=== PATIENT | male | born 1955 | race Caucasian/White ===

== ENCOUNTER 2024-02-29 14:09 | Emergency (ER) | payer OTHER ==
--- OUTSIDE RECORDS SUMMARY | 2024-02-29 14:14 | XMS REPORT | Continuity of Care Document ---
Author Name Unknown Address [address] [facility] [address] [place] [address] [facility] thconnect Address [address] [facility] 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 Role Phone Ralf Maciel Attending Clinician Unavailable Luciano Clay Attending Clinician Unavailable Shweta Andrews Attending Clinician Unavailable Denae Plata Attending Clinician Unavailable Payers Payer Name Policy Type Policy Number Effective Date Expirati on Date Source Problems Condition Name Condition Details Condition Category Status Onset Date Resolution Date Last Treatment Date Treating Clinician Comments Source [id number] Lumbago with sciatica, right side Problem [facility] [id number] Other chronic pain Problem [facility] [id number] Lumbago with sciatica, left side Problem [facility] [id number] Acquired hypothyroi dism Problem [facility] [id number] Benign prostatic hyperplasi a, unspecifie d whether lower urinary tract symptoms present Problem [facility] [id number] Neuropathy Problem Com [facility] [id number] Essential hypertensi on Problem [facility] Social History Social Habit Start Date Stop Date Quantity Comments Source History of Tobacco Use [facility] Sex Assigned At [facility] Smoking Status Start Date Stop Date Source Never Smoker [facility] Former Smoker 2023-04-18 00:00:00 2023-04-18 00:00:00 [facility] Medications Ordered Medication Name Filled Medication Name Start Date Stop Date Current Medication? Ordering Clinician Indication Dosage Frequency Signature (SIG) Comments Components Source Nitrofurant oin Monohyd Macro 100 MG Nitrofurant oin Monohyd Macro 100 MG 2023-03 00:00: 00 No 1{capsu le_with _food} BID Nitrofuran toin Monohyd Macro 100 MG hydroCHLORO thiazide 25 MG hydroCHLORO thiazide 25 MG 2023-03 0- 00:00: 00 No 1{table t_in_th e_morni ng} QD hydroCHLOR Othiazide 25 MG Ciclopirox 8 % Ciclopirox 8 % 2023-03 0- 00:00: 00 No 1{appli cation} QD Ciclopirox 8 % Gabapentin 400 MG Gabapentin 400 MG 11-27 00:00: 00 No 1{capsu le} QD Gabapentin 400 MG Furosemide 20 MG Furosemide 20 MG 07-05 00:00: 00 No 1{table t} BID Furosemide 20 MG Omeprazole 20 MG Omeprazole 20 MG No QD Omeprazole 20 MG Turmeric 400 MG Turmeric 400 MG No Turmeric 400 MG Meloxicam 7.5 MG Meloxicam 7.5 MG No 1{table t} BID Meloxicam 7.5 MG Tamsulosin HCl 0.4 MG Tamsulosin HCl 0.4 MG No 1{capsu le} QD Tamsulosin HCl 0.4 MG Calcium 600 MG Calcium 600 MG No 1{table t_with_ meals} BID Calcium 600 MG Lisinopril 40 MG Lisinopril 40 MG No 1{table t} QD Lisinopril 40 MG Sildenafil Citrate 100 MG Sildenafil Citrate 100 MG No 1{table t} QD Sildenafil Citrate 100 MG Vitamin C 1000 MG Vitamin C 1000 MG No 1{table t} QD Vitamin C 1000 MG Levothyroxi ne Sodium 100 MCG Levothyroxi ne Sodium 100 MCG No QD Levothyrox ine Sodium 100 MCG Apple Cider Vinegar 300 MG Apple Cider Vinegar 300 MG No Apple Cider Vinegar 300 MG Aspirin 81 MG Aspirin 81 MG No 1{table t} QD Aspirin 81 MG Echinacea 400 MG Echinacea 400 MG No Echinacea 400 MG Potassium Potassium No Potassium Gabapentin 600 MG Gabapentin 600 MG No 1{capsu le} BID Gabapentin 600 MG Immunizations Ordered Immunization Name Filled Immunization Name Date Status Comments Source Prevnar 20 (PCV20) Prevnar 20 (PCV20) Unknown Completed [facility] Vital Signs Vital Name Observation Time Observation Value Comments Luz Maria becerril height 2024-02-22 10:00:00 72 [in_i] Commo n [facility] weight 2024-02-22 10:00:00 206.6 [lb_av] Co [facility] temperature 2024-02-22 10:00:00 98 [degF] Comm on [facility] bmi 2024-02-22 10:00:00 28.02 kg/m2 Comm on [facility] oximetry 2024-02-22 10:00:00 98 % Commo n [facility] respiratory rate 2024-02-22 10:00:00 16 /min [facility] blood pressure systolic 2024-02-22 10:00:00 130 mm[Hg] [facility] blood pressure diastolic 2024-02-22 10:00:00 60 mm[Hg] [facility] height 2024-01-03 11:20:00 72 [in_i] Commo n [facility] weight 2024-01-03 11:20:00 211.4 [lb_av] Co mmon [facility] temperature 2024-01-03 11:20:00 99.2 [degF] Com mon [facility] bmi 2024-01-03 11:20:00 28.67 kg/m2 Comm on [facility] oximetry 2024-01-03 11:20:00 97 % Commo n [facility] blood pressure systolic 2024-01-03 11:20:00 146 mm[Hg] [facility] blood pressure diastolic 2024-01-03 11:20:00 80 mm[Hg] [facility] height 2024-01-03 11:20:00 72 [in_i] Commo n [facility] weight 2024-01-03 11:20:00 211.4 [lb_av] Co mmon [facility] temperature 2024-01-03 11:20:00 99.2 [degF] Com [facility] bmi 2024-01-03 11:20:00 28.67 kg/m2 Comm on [facility] oximetry 2024-01-03 11:20:00 97 % Commo n [facility] blood pressure systolic 2024-01-03 11:20:00 146 mm[Hg] [facility] blood pressure diastolic 2024-01-03 11:20:00 80 mm[Hg] Common [facility] height 2023-12-26 09:40:00 72 [in_i] Commo n [facility] weight 2023-12-26 09:40:00 211.2 [lb_av] Co mmon [facility] temperature 2023-12-26 09:40:00 99.0 [degF] Com [facility] bmi 2023-12-26 09:40:00 28.64 kg/m2 Comm on [facility] oximetry 2023-12-26 09:40:00 96 % Commo n [facility] respiratory rate 2023-12-26 09:40:00 16 /min Common [facility] blood pressure systolic 2023-12-26 09:40:00 142 mm[Hg] [facility] blood pressure diastolic 2023-12-26 09:40:00 74 mm[Hg] Common [facility] height 2023-12-12 11:20:00 72 [in_i] Commo n [facility] weight 2023-12-12 11:20:00 218.4 [lb_av] Co mmon [facility] temperature 2023-12-12 11:20:00 99.8 [degF] Com mon [facility] bmi 2023-12-12 11:20:00 29.62 kg/m2 Comm on [facility] oximetry 2023-12-12 11:20:00 97 % Commo n [facility] respiratory rate 2023-12-12 11:20:00 17 /min Common [facility] blood pressure systolic 2023-12-12 11:20:00 162 mm[Hg] [facility] blood pressure diastolic 2023-12-12 11:20:00 84 mm[Hg] Common [facility] height 2023-11-28 10:40:00 72 [in_i] Commo n [facility] weight 2023-11-28 10:40:00 213.4 [facility]lb_av[facility] 2023-11-28 10:40:00 98.2 [degF] Com [facility] bmi 2023-11-28 10:40:00 28.94 kg/m2 Comm on [facility] oximetry 2023-11-28 10:40:00 93 % Commo n [facility] blood pressure systolic 2023-11-28 10:40:00 142 mm[Hg] Common [facility] blood pressure diastolic 2023-11-28 10:40:00 70 mm[Hg] [facility] height 2023-07-06 08:20:00 72 [in_i] Commo n [facility] weight 2023-07-06 08:20:00 212.8 [lb_av] Co mmon [facility] temperature 2023-07-06 08:20:00 98.8 [degF] Com [facility] bmi 2023-07-06 08:20:00 28.86 kg/m2 Comm on [facility] oximetry 2023-07-06 08:20:00 95 % Commo n [facility] respiratory rate 2023-07-06 08:20:00 16 /min Common [facility] blood pressure systolic 2023-07-06 08:20:00 138 mm[Hg] [facility] blood pressure diastolic 2023-07-06 08:20:00 68 mm[Hg] [facility] height 2023-05-23 11:00:00 72 [in_i] Commo n [facility] weight 2023-05-23 11:00:00 207.4 [lb_av] Co on [facility] temperature 2023-05-23 11:00:00 99.1 [degF] Com [facility] bmi 2023-05-23 11:00:00 28.13 kg/m2 Comm on [facility] oximetry 2023-05-23 11:00:00 96 % Commo n [facility] respiratory rate 2023-05-23 11:00:00 16 /min [facility] blood pressure systolic 2023-05-23 11:00:00 139 mm[Hg] [facility] blood pressure diastolic 2023-05-23 11:00:00 75 mm[Hg] [facility] blood pressure systolic 2023-05-23 10:40:00 139 mm[Hg] [facility] blood pressure diastolic 2023-05-23 10:40:00 75 mm[Hg] [facility] height 2023-05-23 10:40:00 72 [in_i] Commo n [facility] weight 2023-05-23 10:40:00 207.4 [lb_av] Co on [facility] temperature 2023-05-23 10:40:00 99.1 [degF] Com [facility] bmi 2023-05-23 10:40:00 28.13 kg/m2 Comm on [facility] oximetry 2023-05-23 10:40:00 96 % Commo n [facility] respiratory rate 2023-05-23 10:40:00 16 /min [facility] height 2023-04-18 10:00:00 72 [in_i] Commo n [facility] weight 2023-04-18 10:00:00 207.00 [lb_av] C ommon [facility] temperature 2023-04-18 10:00:00 98.6 [degF] Com mon [facility] bmi 2023-04-18 10:00:00 28.07 kg/m2 Comm on [facility] oximetry 2023-04-18 10:00:00 99 % Commo n [facility] respiratory rate 2023-04-18 10:00:00 17 /min [facility] blood pressure systolic 2023-04-18 10:00:00 128 mm[Hg] [facility] blood pressure diastolic 2023-04-18 10:00:00 62 mm[Hg] [facility] Encounters Start Date/Time End Date/Time Encounter Type Admission Type Attending [facility] Facility Care Department Encounter ID Source 2023-04-18 09:21:01 Outpatient Ralf Maciel STLMLC STLMLC [id number] [facility] 2024-02-22 00:00:00 2024-02-22 00:00:00 OFFICE VISIT ESTAB PT LEVEL 4 STLMLC STLMLC [id number] [facility] 2024-02-18 00:00:00 2024-02-18 00:00:00 (TEL) STLMLC STLMLC [id number] [facility] 2024-01-07 00:00:00 2024-01-07 00:00:00 (TEL) STLMLC STLMLC [id number] [facility] 2024-01-03 00:00:00 2024-01-03 00:00:00 OFFICE VISIT ESTAB PT LEVEL 4 STLMLC STLMLC [id number] [facility] 2024-01-02 00:00:00 2024-01-02 00:00:00 (TEL) STLMLC STLMLC [id number] [facility] 2023-12-26 00:00:00 2023-12-26 00:00:00 OFFICE VISIT ESTAB PT LEVEL 3 STLMLC STLMLC [id number] [facility] 2023-12-25 00:00:00 2023-12-25 00:00:00 (TEL) STLMLC STLMLC [id number] [facility] 2023-12-18 00:00:00 2023-12-18 00:00:00 (TEL) STLMLC STLMLC [id number] [facility] 2023-12-14 00:00:00 2023-12-14 00:00:00 (TEL) STLMLC STLMLC [id number] [facility] 2023-12-12 00:00:00 2023-12-12 00:00:00 (ESTPT) Establishe d Patient STLMLC STLMLC [id number] [facility] 2023-12-12 00:00:00 2023-12-12 00:00:00 (TEL) STLMLC STLMLC [id number] [facility] 2023-12-05 00:00:00 2023-12-05 00:00:00 (TEL) STLMLC STLMLC [id number] [facility] 2023-11-28 00:00:00 2023-11-28 00:00:00 OFFICE VISIT ESTAB PT LEVEL 4 STLMLC STLMLC [id number] [facility] 2023-11-23 16:04:00 2023-11-23 16:04:00 Outpatient Luciano Clay CHW [id number] [facility] 2023-11-12 00:00:00 2023-11-12 00:00:00 (TEL) STLMLC STLMLC [id number] [facility] 2023-11-09 00:00:00 2023-11-09 00:00:00 (TEL) STLMLC STLMLC [id number] [facility] 2023-10-24 00:00:00 2023-10-24 00:00:00 (TEL) STLMLC STLMLC [id number] [facility] 2023-08-17 00:00:00 2023-08-17 00:00:00 OFFICE VISIT ESTAB PT LEVEL 3 STLMLC STLMLC [id number] [facility] 2023-07-10 00:00:00 2023-07-10 00:00:00 (TEL) STLMLC STLMLC [id number] [facility] 2023-07-06 00:00:00 2023-07-06 00:00:00 OFFICE VISIT ESTAB PT LEVEL 4 STLMLC STLMLC [id number] [facility] 2023-07-05 00:00:00 2023-07-05 00:00:00 (TEL) STLMLC STLMLC [id number] [facility] 2023-05-23 00:00:00 2023-05-23 00:00:00 SUB ANNUAL [facility] VISIT STLMLC STLMLC [id number] [facility] 2023-05-23 00:00:00 2023-05-23 00:00:00 OFFICE VISIT ESTAB PT LEVEL 4 STLMLC STLMLC [id number] [facility] 2023-05-20 00:00:00 2023-05-20 00:00:00 (WEB) STLMLC STLMLC [id number] [facility] 2023-05-14 00:00:00 2023-05-14 00:00:00 (TEL) STLMLC STLMLC [id number] [facility] 2023-04-18 00:00:00 2023-04-18 00:00:00 OFFICE VISIT NEW PT LEVEL 4 STLMLC STLMLC [id number] [facility] 2019-11-27 16:18:00 2019-11-27 16:18:00 Outpatient Shweta Andrews Kevin CHW [id number] [facility] 2019-03-14 09:55:00 2019-03-14 09:55:00 Outpatient Luciano Clay Kevin CHW [id number] [facility] 2019-03-03 12:16:00 2019-03-03 12:16:00 Outpatient Luciano Clay Kevin CHW [id number] [facility] 2018-11-26 10:27:00 2018-11-26 10:27:00 Outpatient Luciano Clay [facility] CHW [id number] [facility] 2018-11-22 12:24:00 2018-11-22 12:24:00 Outpatient Luciano Clay Kevin CHW [id number] [facility] 2018-09-13 14:00:00 2018-09-13 14:00:00 Outpatient Denae Plata W [id number] [facility] 2018-09-11 15:38:00 2018-09-11 15:38:00 Outpatient Denae Plata W [id number] [facility] 2018-09-10 14:16:00 2018-09-10 14:16:00 Outpatient Denae Plata CHW [id number] [facility] 2018-08-14 14:13:00 2018-08-14 14:13:00 Outpatient Denae Plata W [id number] [facility] 2018-07-22 10:22:00 2018-07-22 10:22:00 Outpatient Denae Plata Kevin CHW [id number] [facility] 2018-06-25 16:54:00 2018-06-25 16:54:00 Outpatient Denae Plata W [id number] [facility] 2018-06-20 14:40:00 2018-06-20 14:40:00 Outpatient Konrad-Jessica Whalen CHW [id number] [facility] 2018-06-06 15:00:00 2018-06-06 15:00:00 Outpatient Denae Plata Kevin W [id number] [facility] 2018-06-04 08:13:00 2018-06-04 08:13:00 Outpatient Denae Plata [facility] [id number] [facility] 2018-06-03 10:58:00 2018-06-03 10:58:00 Outpatient Denae Plata Kevin Kevin [id number] [facility] 2018-03-26 09:40:00 2018-03-26 09:40:00 Outpatient Denae Plata Kevin Kevin [id number] [facility] 2018-03-19 10:07:00 2018-03-19 10:07:00 Outpatient Denae Plata Kevin [facility] [id number] [facility] 2018-03-11 08:50:00 2018-03-11 08:50:00 Outpatient Denae Plata Kevin [facility] [id number] [facility] 2018-03-08 08:26:00 2018-03-08 08:26:00 Outpatient Denae Plata Kevin [facility] [id number] [facility] s 2018-03-07 14:35:00 2018-03-07 14:35:00 Outpatient Denae Plata Kevin [facility] [id number] [facility] 2018-01-22 13:00:00 2018-01-22 13:00:00 Outpatient Denae Plata Kevin Kevin [id number] [facility] s 2018-01-15 14:39:00 2018-01-15 14:39:00 Outpatient Denae Plata Kevin [facility] [id number] [facility] 2017-12-13 14:11:00 2017-12-13 14:11:00 Outpatient Denae Plata Kevin [facility] [id number] [facility] 2017-11-28 14:40:00 2017-11-28 14:40:00 Outpatient Denae Plata Kevin [facility] [id number] [facility] 2017-10-30 15:34:00 2017-10-30 15:34:00 [facility] [id number] 2017-10-30 09:20:00 2017-10-30 09:20:00 Outpatient Denae Plata [facility] [id number] [facility] 2017-10-26 15:17:00 2017-10-26 15:17:00 Outpatient Boni Denae W CHW [id number] [facility] Results Test Description Test Time Test Comments Results Result Co mments Source HEMOGLOBIN [id number] 00:00:00* Test Item Value Reference Range Interpretation Comme nts A1C (test code = 4548-4) 6.1 CULTURE, [id number] 00:00:00* Test Item Value Reference Range Interpretation Comme nts CULTURE, URINE (test code = 630-4) SPECIMEN NUMBER: [id number] MICROALBUMIN, RANDOM URINE (W/CREATININE)2023-11-20 00:00:00* Test Item Value Reference Range Interpretation Comme nts TSH W/REFLEX TO FT4 (test code = 3016-3) 2.31 mIU/L See_Comment N [Automated Tinka ge] The system which generated this result transmitted reference range: 0.40-4.50 mIU/L. The reference range was not used to interpret this result as normal/abnormal. CREATININE, RANDOM URINE (test code = 2161-8) 53 mg/dL See_Comment N [Automated Tinka ge] The system which generated this result transmitted reference range: 20-320 mg/dL. The reference range was not used to interpret this result as normal/abnormal. ALBUMIN, URINE (test code = 75364-7) 0.4 mg/dL See Note: mg/dL N ALBUMIN/CREATININE RATIO, RANDOM URINE (test code = 9318-7) 8 mg/g creat See_Comment N [Automated [employer] Powered] The system which generated this result transmitted reference range: <30 mg/g creat. The reference range was not used to interpret this result as normal/abnormal.
[2024-02-29 15:32] LABS: Absolute Basophils 0.1 K/uL (0-0.5); Absolute Eosinophils 0.3 K/uL (0-0.5); Absolute Lymphocytes (CBC) 1.5 K/uL (0.7-4.9); Absolute Monocytes 0.6 K/uL (0.1-1.3); Absolute Neutrophil 4.7 K/uL (1.8-8.0); Basophils % 0.7 % (0-1.3); Eosinophils % 4.2 % (0-4.4); Hematocrit 38.9 % (39.6-49.0); Hemoglobin 13.3 g/dL (13.6-17.9); Lymphocytes % 21.5 % (15.3-44.8); MCHC 34.2 g/dL (32.0-36.0); MCV 90.5 fL (80-100); MPV 9.5 fL (7.6-11.3); Monocytes % 8.3 % (3.3-12.3); Neutrophils % 65.3 % (41.7-73.7); Platelets 232 thou/uL (152-406); Red Cell Distribution Width 12.4 % (12.1-15.2)
[2024-02-29 15:42] LABS: Sqamous Epithelial <5 /HPF (None Seen); Urine Bacteria None Seen /HPF (<20); Urine Culture Reflex Order NOT NEEDED; Urine Microscopic Reflex YN ORDER UMIC; Urine RBC <5 /HPF (None Seen); Urine WBC <5 /HPF (<5); Urine WBC Clump Rare /HPF (None Seen); Urine Yeast (Budding) Trace /HPF (None Seen)
[2024-02-29 15:44] LABS: Specific Gravity 1.009 (1.005-1.030); Urine Bilirubin Negative (Negative); Urine Blood Negative (Negative); Urine Clarity Clear (Clear); Urine Color Light-Yellow (Yellow); Urine Glucose Negative (Negative); Urine Ketones Negative (Negative); Urine Nitrite Negative (Negative); Urine Protein Negative (Negative); Urine Urobilinogen Normal (Normal)
[2024-02-29 15:48] LABS: Albumin 3.9 g/dL (3.4-5.0); Anion Gap 8.6 mEq/L (5.0-15.0); Bilirubin Total 0.5 mg/dL (0.2-1.0); Globulin 3.8 g/dL (2.3-3.5); Potassium 3.6 mEq/L (3.5-5.1); Protein, Total 7.7 g/dL (6.4-8.2)
[2024-02-29 15:54] LABS: PT Prothrombin Time 11.6 SECONDS (9.4-12.5); Protime INR 1.04
[2024-02-29 16:06] LABS: PTT, Activated Partial Thromb 33.4 SECONDS (24.3-36.9)
--- NOTE | 2024-02-29 16:31 | RAD REPORT ---
EXAMINATION: CT Abdomen Pelvis W/Wo Contrast CLINICAL INDICATION: Male, 68 years old. [facility] MAIN left mid/low back pain Bed Name: 13 TECHNIQUE: CT abdomen and pelvis was performed, before and after the administration of IV contrast, a s per department protocol. Axial, sagittal and coronal reconstructions were obtained. One or more of the following dose reduction techniques were used: Automated exposure control, adjustment of the m A and/or kV according to patient size, and/or iterative reconstruction. Unless otherwise specified, incidental findings do not require dedicated imaging follow-up. COMPARISON: 01/02/2024 ultrasound FINDINGS: LOWER CHEST: The visualized lung bases are clear. LIVER: Normal in size and contour. No focal lesion. BILIARY SYSTEM: No suspicious abnormalities. PANCREAS: No mass, ductal dilation, or philip-pancreatic fluid. SPLEEN: Normal size. No focal lesion. ADRENALS: Normal; no mass. KIDNEYS AND URETERS: Normal size and contour. No hydronephrosis or hydroureter. No enhancing mass or filling defect within the renal pelvises. No suspicious filling defects within the ureters. URINARY BLADDER: Mild wall thickening anteriorly and at the dome with some pericystic fat stranding. Moderate prostatomegaly.. No suspicious mass or stone. GASTROINTESTINAL TRACT: No evidence of bowel obstruction, free air, significant free fluid or abscess . Distal colonic diverticulosis. APPENDIX: No inflammatory changes in region of appendix. LYMPH NODES: No lymphadenopathy. REPRODUCTIVE ORGANS: No pathologic process. MUSCULOSKELETAL: Healing anterior right eighth and ninth rib fractures. No other acute or suspicious osseous abnormality. ADDITIONAL FINDINGS: None. IMPRESSION: Mild wall thickening anteriorly and at the dome of the urinary bladder, please correlate clinically f or acute cystitis. Healing anterior right eighth and ninth rib fractures. Distal colonic diverticulosis. Moderate prostatomegaly.
--- NOTE | 2024-02-29 17:12 | EDPHYS ---
Physician Documentation [facility] Name: Evin Rebollar Age: 68 yrs Sex: Male : 1955 Arrival Date: 02/29/2024 Time: 14:09 Bed 13 Private MD: ED Physician Marlon Robles HPI: 02/28 14:55 This 68 yrs old Male presents to ER via Ambulatory with complaints of Urinary Problem. cp 14:55 The patient presents with urinary symptoms, dysuria, discharge. cp 14:55 Patient is a 60-year-old male past medical history significant for hypertension and cp diabetes who reports he was referred to the emergency department for IV antibiotics for positive urine culture that grew MRSA. Patient reports he self caths due to enlarged prostate and that he saw his PCP this past Sunday and provided a urine sample that had a positive culture report for MRSA type bacteria. Patient denies any fevers, chills and/or abdominal pain. Patient does report discharge after urinating. Historical: - Allergies: 14:29 No Known Allergies; db - PMHx: 14:29 Diabetes mellitus; Hypertensive disorder; db - Immunization history:: Adult Immunizations unknown. - Infectious Disease History:: Denies. - Social history:: Smoking status: Patient reports the use of cigarette tobacco products, denies chronic smoking, but will smoke occasionally. ROS: 15:00 Constitutional: Negative for body aches, chills, fever, poor PO intake, cp 15:00 Eyes: Negative for injury, pain, redness, and discharge, cp 15:00 ENT: Negative for drainage from ear(s), ear pain, difficulty swallowing, difficulty handling secretions, 15:00 Abdomen/GI: Negative for abdominal pain, nausea, vomiting, and diarrhea, 15:00 Back: Positive for flank pain, on the left, 15:00 : Positive for penile discharge, 15:00 Neuro: Negative for altered mental status, headache, weakness, 15:00 All other systems are negative, Exam: 15:05 Constitutional: The patient appears in no acute distress, alert, awake, comfortable, cp non-toxic, well developed, well nourished, 15:05 Head/Face: Normocephalic, atraumatic. cp 15:05 Eyes: Periorbital structures: appear normal, Conjunctiva: normal, no exudate, no injection, Sclera: no appreciated abnormality, Lids and lashes: appear normal, bilaterally, 15:05 ENT: External ear(s): are unremarkable, Nose: is normal, Mouth: Lips: moist, Oral mucosa: moist, Posterior pharynx: Airway: no evidence of obstruction, patent, 15:05 Chest/axilla: Inspection: normal, 15:05 Cardiovascular: Rate: normal, Rhythm: regular, Edema: is not appreciated, JVD: is not appreciated, 15:05 Respiratory: the patient does not display signs of respiratory distress, Respirations: normal, no use of accessory muscles, no retractions, labored breathing, is not present, Breath sounds: are clear throughout, no decreased breath sounds, no stridor, no wheezing, 15:05 Abdomen/GI: Inspection: abdomen appears normal, Palpation: abdomen is soft and non-tender, in all quadrants, 15:05 Back: pain, that is mild, of the left low back and left mid back, ROM is normal, 15:05 Neuro: Orientation: to person, place \T\ time. Mentation: is normal, Motor: moves all fours, strength is normal, Gait: is steady, 16:46 ECG was reviewed by the Attending Physician. Vital Signs: 14:27 BP 136 / 68; Pulse 70; Resp 16; Temp 97.7; Pulse Ox 99% ; Weight 95.25 kg; Height 6 ft. db 0 in. ; Pain 0/10; 17:30 BP 134 / 74; Pulse 71; Resp 17; Pulse Ox 99% on R/A; rs5 14:27 Body Mass Index 28.48 (95.25 kg, 182.88 cm) db 14:27 Pain Scale: Adult db MDM: 14:25 Medical Screening Exam initiated cp 15:00 Differential diagnosis: UTI, urinary retention, prostatitis, urethritis, sepsis. 17:10 Data reviewed: vital signs, nurses notes, lab test result(s), radiologic studies, CT cp scan, and as a result, I will discharge patient. 17:11 I considered the following discharge prescriptions or medication management in the emergency department Medications were administered in the Emergency Department. See MAR. 17:11 Independent interpretation of the following test(s) in the Emergency Department EKG: cp See my EKG interpretation above. Care significantly affected by the following chronic conditions: Diabetes, Hypertension. Counseling: I had a detailed discussion with the patient and/or guardian regarding the historical points, exam findings, and any diagnostic results supporting the discharge/admit diagnosis, lab results, radiology results, the need for outpatient follow up, a urologist, to return to the emergency department if symptoms worsen or persist or if there are any questions or concerns that arise at home. ED course: VSS. Discussed results of today's testing and urine results that were negative for wbcs and bacteria. No indication for admission and IV antibiotics at this time. Will discharge to home for continued monitoring. 02/28 14:53 Order name: Urinalysis w/ reflexes; Complete Time: 15:47 02/28 15:47 Interpretation: Normal except: BYST Trace. 02/28 14:53 Order name: Blood Culture Adult (2) 02/28 14:53 Order name: CBC with Diff; Complete Time: 15:47 02/28 15:48 Interpretation: Normal except: RBC 4.30; HGB 13.3; HCT 38.9. 02/28 14:53 Order name: CMP; Complete Time: 15:49 02/28 15:49 Interpretation: Normal except: GLUC 151; BUN 25; GFR 80; GLOB 3.8; A/G 1.0. 02/28 14:53 Order name: Lactate w/ 2H reflex if indic.; Complete Time: 16:07 02/28 16:07 Interpretation: Reviewed. 02/28 14:53 Order name: Protime (+inr); Complete Time: 16:07 02/28 16:07 Interpretation: Reviewed. 02/28 14:53 Order name: Ptt, Activated; Complete Time: 16:07 02/28 16:07 Interpretation: Reviewed. 02/28 15:49 Order name: CT Abd/Pelvis- W/WO Contrast; Complete Time: 16:47 02/28 16:48 Interpretation: Reviewed. 02/28 14:53 Order name: Cath; Complete Time: 17:13 02/28 14:53 Order name: Accucheck; Complete Time: 15:47 02/28 14:53 Order name: Cardiac monitoring; Complete Time: 15:47 02/28 14:53 Order name: IV Saline Lock - Large Bore; Complete Time: 15:23 02/28 14:53 Order name: Labs collected and sent; Complete Time: 15:23 cp 02/28 14:53 Order name: O2 Per Protocol; Complete Time: 15:47 cp 02/28 14:53 Order name: O2 Sat Monitoring; Complete Time: 15:47 cp 02/28 14:53 Order name: Vital Signs; Complete Time: 15:47 cp EC:46 Rate is 66 beats/min. Rhythm is regular. VA interval is normal. QRS interval is cp prolonged at 112 msec. QT interval is normal. T waves are Inverted in lead aVR. Interpreted by me. Reviewed by me. Administered Medications: 17:13 Drug: Trimethoprim-Sulfamethoxazole PO (160 mg-800 mg (DS) 1 tablet PO once Route: PO; rs5 Disposition Summary: 02/29/24 17:11 Discharge Ordered Notes: Location: Home cp Problem: new cp Symptoms: have improved cp Condition: Stable cp Diagnosis - Enlarged prostate with lower urinary tract symptoms cp Followup: cp - With: Shreyas Lei MD - When: 1 week - Reason: Recheck today's complaints Discharge Instructions: - Discharge Summary Sheet cp - Prostate Laser Surgery cp Forms: - Medication Reconciliation Form cp - Antibiotic Education cp - Prescription Opioid Use cp - Patient Portal Instructions cp - Leadership Thank You Letter cp Prescriptions: - Bactrim DS 800-160 mg Oral Tablet - take 1 tablet ORAL route every 12 hours for 7 days; 14 tablet; Refills: 0, cp Product Selection Permitted Addendum: 03/03/2024 14:33 Co-signature as Attending Physician, Marlon Robles MD I agree with the assessment and c gutierrez plan of care. Signatures: Dispatcher [employer] Marlon Gambino MD MD cha Page, Corey, PA PA cp Dina Malik, RN RN db Mikey Simmons RN RN rs5 Corrections: (The following items were deleted from the chart) 02/28 14:53 14:53 Urinalysis+U.LAB.BRZ ordered. EDMS EDMS 14:53 14:53 BLOOD CULTURE*+BA.LAB.BRZ ordered. EDMS EDMS 14:53 14:53 CBC+H.LAB.BRZ ordered. EDMS EDMS 14:54 14:53 COMPREHENSIVE METABOLIC PANEL+C.LAB.BRZ ordered. EDMS EDMS 14:54 14:53 LACTATE+C.LAB.BRZ ordered. EDMS EDMS 14:54 14:53 PROTIME (+INR)+COAG.LAB.BRZ ordered. EDMS EDMS 14:53 PTT, ACTIVATED+COAG.LAB.BRZ ordered. EDMS EDMS 17: 14:53 EKG - Nurse/Tech ordered. cp rs5
--- NOTE | 2024-02-29 17:12 | ER ---
Nurse's Notes [facility] Name: Evin Rebollar Age: 68 yrs Sex: Male : 1955 Arrival Date: 02/29/2024 Time: 14:09 Bed 13 Private MD: Diagnosis: Enlarged prostate with lower urinary tract symptoms Presentation: 02/28 14:27 Chief complaint: Patient states: STATES SUNDAY WENT TO PCP FOR DIFFICULTY URINATING AND db MILKY DISCHARGE. DIAGNOSED WITH UTI AND URINE CULTURE SHOWED MRSA. WAS TOLD TO COME TO ER FOR IV ANTIBIOTIC THERAPY. Coronavirus screen: Client denies travel out of the [place] in the last 14 days. At this time, the client does not indicate any symptoms associated with coronavirus-19. Ebola Screen: Patient negative for fever greater than or equal to 101.5 degrees Fahrenheit, and additional compatible Ebola Virus Disease symptoms Patient denies exposure to infectious person. Patient denies travel to an Ebola-affected area in the 21 days before illness onset. No symptoms or risks identified at this time. Initial Sepsis Screen: Does the patient meet any 2 criteria? No. Patient's initial sepsis screen is negative. Does the patient have a suspected source of infection? No. Patient's initial sepsis screen is negative. Risk Assessment: Do you want to hurt yourself or someone else? Patient reports no desire to harm self or others. Onset of symptoms was February 29, 2024. 14: Method Of Arrival: Ambulatory db 14:27 Acuity: ALTAGRACIA 3 db Triage Assessment: 14:29 General: Appears in no apparent distress. comfortable, Behavior is calm, cooperative. db Pain: Denies pain. Neuro: Level of Consciousness is awake, alert, obeys commands, Oriented to person, place, time, situation. Respiratory: Airway is patent Respiratory effort is even, unlabored, Respiratory pattern is regular, symmetrical. : Reports discharge, urinary frequency. Historical: - Allergies: 14:29 No Known Allergies; db - PMHx: 14:29 Diabetes mellitus; Hypertensive disorder; db - Immunization history:: Adult Immunizations unknown. - Infectious Disease History:: Denies. - Social history:: Smoking status: Patient reports the use of cigarette tobacco products, denies chronic smoking, but will smoke occasionally. Screenin:25 [facility] ED Fall Risk Assessment (Adult) History of falling in the last 3 months, rs5 including since admission No falls in past 3 months (0 pts) Confusion or Disorientation No (0 pts) Intoxicated or Sedated No (0 pts) Impaired Gait Yes (1 pt) Mobility Assist Device Used Yes (1 pt) Altered Elimination No (0 pt) Score/Fall Risk Level 0 - 2 = Low Risk Oriented to surroundings, Maintained a safe environment. 14:25 Abuse screen: Denies threats or abuse. Nutritional screening: No deficits noted. rs5 Tuberculosis screening: No symptoms or risk factors identified. Assessment: 14:30 General: Appears in no apparent distress. uncomfortable, Behavior is calm, cooperative. rs5 14:30 Pain: Denies pain. Neuro: Level of Consciousness is awake, alert, obeys commands, rs5 Oriented to person, place, time, situation. Cardiovascular: Patient's skin is warm and dry. Respiratory: Airway is patent Respiratory effort is even, unlabored, Respiratory pattern is regular, symmetrical. GI: Abdomen is round non-distended, Abd is soft and non tender X 4 quads. : Reports inability to void. pt states "I cath myself intermittently when I feel like peeing. I don't want a Mcdaniel but if you want a urine sample you can cath me only for urine " provider notified. EENT: No signs and/or symptoms were reported regarding the EENT system. Derm: Skin is intact, Skin is pink, warm \\T\\ dry. Musculoskeletal: Range of motion:. 14:45 Reassessment: Patient and/or family updated on plan of care and expected duration. Pain rs5 level reassessed. Patient is alert, oriented x 3, equal unlabored respirations, skin warm/dry/pink. 16:01 Reassessment: Patient and/or family updated on plan of care and expected duration. Pain rs5 level reassessed. Patient is alert, oriented x 3, equal unlabored respirations, skin warm/dry/pink. 17:33 Reassessment: Patient and/or family updated on plan of care and expected duration. Pain rs5 level reassessed. Patient is alert, oriented x 3, equal unlabored respirations, skin warm/dry/pink. Vital Signs: 14:27 BP 136 / 68; Pulse 70; Resp 16; Temp 97.7; Pulse Ox 99% ; Weight 95.25 kg; Height 6 ft. db 0 in. ; Pain 0/10; 17:30 BP 134 / 74; Pulse 71; Resp 17; Pulse Ox 99% on R/A; rs5 14:27 Body Mass Index 28.48 (95.25 kg, 182.88 cm) db 14:27 Pain Scale: Adult db ED Course: 14:11 Patient arrived in ED. mr 14:14 Marlon Sanchez PA is PHCP. cp 14:14 Marlon Robles MD is Attending Physician. cp 14:25 Patient has correct armband on for positive identification. Placed in gown. Bed in low rs5 position. Call light in reach. Side rails up X2. 14:25 No provider procedures requiring assistance completed. rs5 14:29 Triage completed. db 14:29 Arm band placed on Patient placed in an exam room. db 14:44 Mikey Simmons, RN is Primary Nurse. rs5 15:23 Blood Culture Adult (2) Sent. nh2 15:23 CBC with Diff Sent. nh2 15:23 CMP Sent. nh2 15:23 Lactate w/ 2H reflex if indic. Sent. nh2 15:23 Protime (+inr) Sent. nh2 15:23 Ptt, Activated Sent. nh2 15:38 Protime (+inr) Sent. nh2 15:38 Lactate w/ 2H reflex if indic. Sent. nh2 15:38 CMP Sent. nh2 15:38 Blood Culture Adult (2) Sent. nh2 15:38 Ptt, Activated Sent. nh2 15:39 Inserted saline lock: 20 gauge in right antecubital area, using aseptic technique. nh2 Blood collected. Flushed with 10 mL NS. 16:10 CT Abd/Pelvis- W/WO Contrast In Process Unspecified. EDMS 17:10 Shreyas Lei MD is Referral Physician. cp 17:33 Provided Education on: discharge instructions . rs5 17:34 IV discontinued, intact, bleeding controlled, No redness/swelling at site. Pressure rs5 dressing applied. Administered Medications: 17:13 Drug: Trimethoprim-Sulfamethoxazole PO (160 mg-800 mg (DS) 1 tablet PO once Route: PO; rs5 Medication: 14:53 VIS not applicable for this client. rs5 Outcome: 17:11 Discharge ordered by . cp 17:34 Discharged to home ambulatory, rs5 17:34 Condition: stable rs5 17:34 Discharge instructions given to patient, family, Instructed on discharge instructions, follow up and referral plans. Demonstrated understanding of instructions, follow-up care, 17:35 Patient left the ED. rs5 Signatures: Dispatcher [employer] EDMS Jing Dhillon, Jj Reg mr Marlon Sanchez PA PA cp Benton, Danielle RN RN db Mikey Simmons RN RN rs5 Jonas Bonilla, Kristopher [facility] Corrections: (The following items were deleted from the chart) 17:57 17:57 BP 134 / 74; Pulse 71bpm; Resp 17bpm; Pulse Ox 99% RA; rs5 rs5 17:58 17:34 Patient did not have IV access during this emergency room visit. rs5 rs5
[2024-02-29] MEDS ORDERED: SULFAMETH/TRIMETHOPRIM 200 MG/5 ML UDBOT ONE (17:13)
[2024-02-29 17:53] VITALS: BP 136/68; TEMP 97.7; O2SAT 99
--- NOTE | 2024-03-03 11:18 | EKG ---
Test Date: 2024-02-29 Test Time: 16:43:34 Front End Manager: FRANCISCO MEASUREMENT RESULTS: Intervals: Rate: 66 NJ: 186 QRSD: 112 QT: 384 QTc: 402 [place]: P: 72 NJ: 186 QRS: 59 T: 55 INTERPRETIVE STATEMENTS: Normal sinus rhythm Incomplete right bundle branch block Septal infarct, age undetermined Abnormal ECG Compared to ECG 04/30/2023 10:47:05 Incomplete right bundle-branch block now present Myocardial infarct finding now present Electronically Signed On 03-03-24 11:12:43 STOCK REPLENISHER by Iglesia Kramer
== END 2024-02-29 17:35 | disposition home or self-care (01) ==
LOC: ER 14:09
DX: N40.1 Benign prostatic hyperplasia with lower urinary tract symptoms (principal); E11.9 Type 2 diabetes mellitus without complications; I10 Essential (primary) hypertension; F17.210 Nicotine dependence, cigarettes, uncomplicated
CPT/HCPCS: 93005; 87040 ×2; 85025; 81001; 36415; 85610; 83605; 85730; 80053; 74178; 99284; Q9967